=== PATIENT | male | born 1970 | race Caucasian/White ===

== ENCOUNTER → 2020-07-30 | Outpatient (CLI) | payer OTHER | END | disposition home or self-care (01) | LOC: RAD 16:08 | PROVIDERS: ATTEND Student in an Organized Health Care Education/Training Program | DX: M17.0 Bilateral primary osteoarthritis of knee (principal) ==

== ENCOUNTER → 2020-11-25 | Outpatient (CLI) | payer OTHER | END | disposition home or self-care (01) | LOC: RAD 12:18 | PROVIDERS: ATTEND Family Medicine | DX: R09.89 Other specified symptoms and signs involving the circulatory and respiratory systems (principal); M47.814 Spondylosis without myelopathy or radiculopathy, thoracic region ==

== ENCOUNTER 2021-04-03 17:16 | Emergency (ER) | payer OTHER ==
[~2021-04-03] VITALS: Ht 182.8 cm; Wt 99.8 kg
[2021-04-04] MEDS ORDERED: MEDROL DOSEPAK4 MG PO (00:10)
== END 2021-04-04 00:18 | disposition home or self-care (01) ==
LOC: ED 17:16
DX: M47.896 Other spondylosis, lumbar region (principal); M51.36 Other intervertebral disc degeneration, lumbar region; Z88.0 Allergy status to penicillin; Z88.8 Allergy status to other drugs, medicaments and biological substances; Z91.040 Latex allergy status

== ENCOUNTER → 2024-09-17 | Outpatient (CLI) | payer OTHER ==
[~2024-09-17] MED LIST: MEDROL DOSEPAK4 MG PO
== END | disposition home or self-care (01) ==
LOC: RAD 08:35
PROVIDERS: ATTEND Family Medicine
DX: M17.0 Bilateral primary osteoarthritis of knee (principal); M65.862 Other synovitis and tenosynovitis, left lower leg; M65.861 Other synovitis and tenosynovitis, right lower leg; M25.761 Osteophyte, right knee; Z96.652 Presence of left artificial knee joint

== ENCOUNTER 2024-10-31 15:15 | Emergency (ER) | payer OTHER ==
[~2024-10-31] VITALS: Ht 180.3 cm; Wt 108.9 kg
[2024-10-31] MEDS ORDERED: AVPAK AZITHROM250 M1 PO (15:31)
[2024-11-01] MEDS ORDERED: AVPAK AZITHROM250 M1 PO (09:15)
== END 2024-10-31 15:36 | disposition home or self-care (01) ==
LOC: ED 15:15
DX: J32.9 Chronic sinusitis, unspecified (principal); H92.03 Otalgia, bilateral; F17.210 Nicotine dependence, cigarettes, uncomplicated; Z88.0 Allergy status to penicillin; Z88.8 Allergy status to other drugs, medicaments and biological substances